=== PATIENT | male | born 1975 | race Caucasian/White ===

== ENCOUNTER 2017-08-14 15:26 | Emergency (ER) | payer BC ==
[~2017-08-14] VITALS: Ht 188 cm; Wt 71.0 kg
[2017-08-14 15:30] VITALS: TEMP 36.7; Ht 188 cm; Wt 71.0 kg
[2017-08-14] MEDS ORDERED: KETOROLAC TROMETHAMINE 30 MG/ML VIAL IV STA (15:44)
[2017-08-14] MEDS ORDERED: CLINDAMYCIN IV 900 MG in DEXTROSE 5% 100ML 100 ML IV ONE (15:45)
--- NOTE | 2017-08-14 16:05 | EMERGENCY ROOM VISIT NOTE ---
History First contact with patient: 15:35 Chief Complaint: NASAL PAIN/INJURY Stated Complaint: CELLULITIOUS IN LEFT NOSTRIL History of Present Illness The patient is a 41 year old male who presents to the Emergency Room with complaints of severe left-sided nasal pain, swelling and erythema that started 2 days ago. The patient was seen at [facility] last evening. He had blood work and a CAT scan. He was told that he had cellulitis. They said there is no sign of drainable collection. Patient was prescribed doxycycline. The patient took 1 dose of doxycycline without any improvement. He denies any fever or chills. No problems with vision. He does note that the left nostril is draining purulent fluid. Review of Systems 10 system review performed and negative unless noted in HPI or below Past Medical/Surgical History Otherwise healthy Social History Smoking Status: Current Some Day Smoker Current/Historical Medications Scheduled Clindamycin Hcl (Cleocin), 300 MG PO QID Physical Exam Vital Signs Date Time Temp Pulse Resp B/P (MAP) Pulse Ox O2 Delivery O2 Flow Rate FiO2 08/14/17 17:30 67 16 134/76 98 08/14/17 15:30 36.7 104 20 147/100 98 Room Air Physical Exam VITALS: Vitals are noted on the nurse's note and reviewed by myself. Vital signs stable. GENERAL: 41-year-old male, moderately uncomfortable, SKIN: The skin was warm and dry HEAD: Normocephalic atraumatic. EYES: Conjunctivae without injection, sclerae without icterus. Extraocular movements intact. No pain with extraocular movement. No periorbital edema or erythema NOSE: Erythema and edema noted particularly to the left nostril. There is an area of drainage noted on the lateral aspect of the inside of the left nostril. There is no septal hematoma present.. MOUTH: Mucous membranes moist. Tonsils are not enlarged. Pharynx without erythema or exudate. Uvula midline. Airway patent. Tongue does not deviate. NECK: Lymphadenopathy noted in the posterior cervical chain bilaterally appear HEART: Regular rate and rhythm without murmurs gallops or rubs. LUNGS: Clear to auscultation bilaterally without wheezes, rales or rhonchi. No accessory muscle use. ABDOMEN: Soft, nondistended MUSCULOSKELETAL: No muscle atrophy, erythema, or edema noted. Strength 5/5 throughout. NEURO: Patient was alert and oriented to person place and time. Normal sensation to touch. No focal neurological deficits. Medical Decision & Procedures Laboratory Results 08/14/17 15:57 Red Blood Count 4.30, Mean Corpuscular Volume 89.1, Mean Corpuscular Hemoglobin 30.0, Mean Corpuscular Hemoglobin Concent 33.7, Mean Platelet Volume 10.9, Neutrophils (%) (Auto) 72.4, Lymphocytes (%) (Auto) 17.1, Monocytes (%) (Auto) 7.5, Eosinophils (%) (Auto) 2.5, Basophils (%) (Auto) 0.2, Neutrophils # (Auto) 7.18, Lymphocytes # (Auto) 1.70, Monocytes # (Auto) 0.74, Eosinophils # (Auto) 0.25, Basophils # (Auto) 0.02 08/14/17 15:57 Test 08/14/17 15:57 White Blood Count 9.92 K/uL (4.8-10.8) Red Blood Count 4.30 M/uL (4.7-6.1) Hemoglobin 12.9 g/dL (14.0-18.0) Hematocrit 38.3 % (42-52) Mean Corpuscular Volume 89.1 fL (80-100) Mean Corpuscular Hemoglobin 30.0 pg (25-34) Mean Corpuscular Hemoglobin Concent 33.7 g/dl (32-36) Platelet Count 181 K/uL (130-400) Mean Platelet Volume 10.9 fL (7.4-10.4) Neutrophils (%) (Auto) 72.4 % Lymphocytes (%) (Auto) 17.1 % Monocytes (%) (Auto) 7.5 % Eosinophils (%) (Auto) 2.5 % Basophils (%) (Auto) 0.2 % Neutrophils # (Auto) 7.18 K/uL (1.4-6.5) Lymphocytes # (Auto) 1.70 K/uL (1.2-3.4) Monocytes # (Auto) 0.74 K/uL (0.11-0.59) Eosinophils # (Auto) 0.25 K/uL (0-0.5) Basophils # (Auto) 0.02 K/uL (0-0.2) RDW Standard Deviation 45.3 fL (36.4-46.3) RDW Coefficient of Variation 13.8 % (11.5-14.5) Immature Granulocyte % (Auto) 0.3 % Immature Granulocyte # (Auto) 0.03 K/uL (0.00-0.02) Anion Gap 5.0 mmol/L (3-11) Est Creatinine Clear Calc Drug Dose 82.3 ml/min Estimated GFR () 86.9 Estimated GFR (Non- 75.0 BUN/Creatinine Ratio 11.7 (10-20) Calcium Level 8.9 mg/dl (8.5-10.1) Medications Administered Medications (Trade) Dose Ordered Sig/Marquis Route Start Time Stop Time Status Last Admin Dose Admin Clindamycin Phosphate 900 mg/ Dextrose 106 ml @ 100 mls/hr ONE ONCE IV 08/14/17 15:45 08/14/17 16:48 DC 08/14/17 15:45 100 MLS/HR Ketorolac Tromethamine (Toradol Inj) 30 mg NOW STAT IV 08/14/17 15:44 08/14/17 15:46 DC 08/14/17 15:44 30 MG ED Course Patient was seen and examined Vital signs including blood pressure were reviewed medications list was verified with patient Labs were obtained, and a saline lock was established Outpatient records from [place] were requested The patient was given Toradol 30 mg IV. He was also given clindamycin 900 mg IV Upon reevaluation, the patient was feeling much better. He said that his swelling and pain were both down. We reviewed his blood work. He voiced understanding, was comfortable being discharged home I reviewed discharge instructions the patient. They voiced understanding and had no further questions. Medical Decision Differential diagnosis: Facial cellulitis, abscess, sepsis, periorbital/ preseptal cellulitis This patient is a 41-year-old male presents to the emergency department with pain, erythema and swelling to the left side of his nose. On exam, he did have cellulitis. There were no signs of periorbital or post septal cellulitis. He is nontoxic in appearance. There was an open sore draining inside the nostril. Unfortunately, records were unable to be obtained from [place]. The patient was given 1 dose of clindamycin IV with excellent response. A culture was taken. The patient will be discharged home with a 7 day course of clindamycin. He will follow-up with his primary care physician for recheck, and agrees to return with any worsening symptoms. This chart was completed in part utilizing [employer] Voice Recognition software. Attempts were made to minimize the grammatical errors, random word insertions, pronoun errors and incomplete sentences. Any formal questions or concerns about the content, text or information contained within the body of this dictation should be directly addressed to the provider for clarification. Blood Pressure Screening Patient's blood pressure: Elevated blood pressure Blood pressure disposition: Elevated BP felt to be situational Impression Primary Impression: Facial cellulitis Departure Information Dispostion Home / Self-Care Condition GOOD Prescriptions Clindamycin Hcl (CLEOCIN) 300 Mg Cap 300 MG PO QID for 7 Days, #28 CAP Prov: Monica Dickerson PA-C 08/14/17 Referrals No Doctor, Assigned (PCP) Patient Instructions [facility] Additional Instructions You were evaluated in the emergency department for redness and swelling of the nose. This is likely due to cellulitis, and infection of the skin Please take the ENTIRE course of antibiotics Ibuprofen 800 mg and/or Tylenol 1000 mg every 8 hours for pain. You may also alternate these medications for more effective pain relief: Ibuprofen --4 HRS--> Tylenol --4 HRS--> ibuprofen --4 HRS--> Tylenol .... Please follow-up with your primary care physician in the next 5 days for a recheck Do not hesitate to return to the emergency department with any new, worsening or concerning symptoms; especially, increased redness, swelling, pain or fever It was a pleasure participating in your care today
[2017-08-14 16:12] LABS: BASO % 0.2 %; BASO ABS # 0.02 K/uL (0-0.2); EOS % 2.5 %; EOS ABS # 0.25 K/uL (0-0.5); HEMATOCRIT 38.3 % (42-52); HEMOGLOBIN 12.9 g/dL (14.0-18.0); IG# 0.03 K/uL (0.00-0.02); LYMPH % 17.1 %; MEAN CELL VOLUME 89.1 fL (80-100); MEAN CORPUSCULAR HGB CONC 33.7 g/dl (32-36); MEAN PLATELET VOLUME 10.9 fL (7.4-10.4); MONO % 7.5 %; MONO ABS # 0.74 K/uL (0.11-0.59); NEUT % 72.4 %; NEUT ABS # 7.18 K/uL (1.4-6.5); PLATELET COUNT 181 K/uL (130-400); RED CELL DISTRIBUTION WIDTH CV 13.8 % (11.5-14.5); RED CELL DISTRIBUTION WIDTH SD 45.3 fL (36.4-46.3); WHITE BLOOD COUNT 9.92 K/uL (4.8-10.8)
[2017-08-14 16:29] LABS: CALCIUM 8.9 mg/dl (8.5-10.1); CREATININE 1.21 mg/dl (0.60-1.40); POTASSIUM 3.6 mmol/L (3.5-5.1)
[2017-08-14] MEDS ORDERED: CLIN300C2 PO (17:16)
[2017-08-14 17:30] VITALS: BP 134/76; PULSE 67; O2SAT 98
== END 2017-08-14 17:36 | disposition home or self-care (01) ==
LOC: C.EDB 15:28 → C.EDA 17:36
DX: J34.0 Abscess, furuncle and carbuncle of nose (principal); F17.200 Nicotine dependence, unspecified, uncomplicated